=== PATIENT | female | born 1945 | race Two or more races ===

== ENCOUNTER 2017-09-30 08:01 | Emergency (ER) | payer OTHER ==
[~2017-09-30] VITALS: Ht 160 cm; Wt 56.7 kg
[~2017-09-30 08:01] MED LIST: CELEBREX100 MG PO; FOSAMAX70 MG; GLUCOPHAGE XR500 MG; KEPPRA500 MG; KETO10TA2 PO; TOPAMAX25 M1; ZOCOR20 MG
== END 2017-09-30 15:25 | disposition home or self-care (01) ==
LOC: ER 08:01 → CPU-OBS 08:13 → ER 08:13
DX: R07.89 Other chest pain (principal)

== ENCOUNTER 2018-02-07 14:33 | Outpatient (CLI) | payer OTHER | END 2018-02-07 14:38 | disposition home or self-care (01) | LOC: MAMO-SONO 14:33 | DX: Z12.31 Encounter for screening mammogram for malignant neoplasm of breast (principal); Z87.898 Personal history of other specified conditions; N60.21 Fibroadenosis of right breast; N60.22 Fibroadenosis of left breast ==

== ENCOUNTER 2018-05-23 08:51 | Outpatient (CLI) | payer OTHER | END 2018-05-23 08:54 | disposition home or self-care (01) | LOC: SONOGRAMA 08:51 | DX: R10.9 Unspecified abdominal pain (principal) ==

== ENCOUNTER 2019-06-18 09:41 | Outpatient (CLI) | payer OTHER | END 2019-06-18 09:48 | disposition home or self-care (01) | LOC: MAMO-SONO 09:41 | DX: Z12.31 Encounter for screening mammogram for malignant neoplasm of breast (principal); Z87.898 Personal history of other specified conditions; R22.2 Localized swelling, mass and lump, trunk ==

== ENCOUNTER 2020-02-11 09:21 | Outpatient (CLI) | payer OTHER | END 2020-02-11 09:29 | disposition home or self-care (01) | LOC: MRI 09:21 | PROVIDERS: ATTEND Specialist | DX: M50.20 Other cervical disc displacement, unspecified cervical region (principal) | CPT/HCPCS: 72141 ==

== ENCOUNTER 2020-02-25 10:39 | Outpatient (CLI) | payer OTHER | END 2020-02-25 10:45 | disposition home or self-care (01) | LOC: TOM 10:39 | PROVIDERS: ATTEND Specialist | DX: M25.511 Pain in right shoulder (principal); M75.101 Unspecified rotator cuff tear or rupture of right shoulder, not specified as traumatic ==

== ENCOUNTER 2020-06-29 12:02 | Outpatient (CLI) | payer OTHER | END 2020-06-29 12:15 | disposition home or self-care (01) | LOC: NUCLEAR 12:02 | PROVIDERS: ATTEND Family Medicine | DX: M81.0 Age-related osteoporosis without current pathological fracture (principal) ==

== ENCOUNTER → 2020-12-02 10:06 | Outpatient (CLI) | payer OTHER | END | disposition home or self-care (01) | LOC: MRI 10:06 | PROVIDERS: ATTEND Orthopaedic Surgery Adult Reconstructive Orthopaedic Surgery | DX: M25.511 Pain in right shoulder (principal); M75.41 Impingement syndrome of right shoulder; M75.121 Complete rotator cuff tear or rupture of right shoulder, not specified as traumatic | CPT/HCPCS: 73221 ==

== ENCOUNTER 2022-08-26 08:19 | Outpatient (CLI) | payer OTHER | END 2022-08-26 08:32 | disposition home or self-care (01) | LOC: MAMO-SONO 08:19 | PROVIDERS: ATTEND Family Medicine | DX: Z12.31 Encounter for screening mammogram for malignant neoplasm of breast (principal) ==

== ENCOUNTER 2023-09-07 09:29 | Outpatient (CLI) | payer OTHER | END 2023-09-07 09:36 | disposition home or self-care (01) | LOC: SONOGRAMA 09:29 | DX: M75.112 Incomplete rotator cuff tear or rupture of left shoulder, not specified as traumatic (principal) ==

== ENCOUNTER 2024-04-11 05:25 | Day surgery (SDC) | payer OTHER ==
[2024-03-28 08:55] LABS: HEMATOCRIT 43.7 % (36.0-45.00); MEAN CELL VOLUME 88.9 fL (80.00-100.00); MEAN CORPUSCULAR HEMOGLOBIN 30.5 pg (27.00-32.0); MEAN CORPUSCULAR HGB CONC 34.3 g/dl (32.0-36.0); PLATELET COUNT 175 K/uL (150-450); RED BLOOD COUNT 4.91 M/uL (4.00-6.00); RED CELL DISTRIBUTION WIDTH 14.5 % (11.5-14.5)
[2024-03-28 09:18] LABS: PARTIAL THROMBOPLASTIN TIME 25.6 SECONDS (22.0-34.0); PROTHROMBIN TIME 10.9 SECONDS (9.0-11.5)
[2024-03-28 09:23] LABS: ALBUMIN 4.4 gm/dL (3.4-5.0); BILIRUBIN TOTAL 1.91 mg/dL (0.3-1.2); CALCIUM 10.4 mg/dL (8.5-10.1); CREATININE SERUM 0.94 mg/dL (0.55-1.02); GFR 57.59; POTASSIUM 4.46 mEq/L (3.5-5.1); TOTAL PROTEIN 7.4 gm/dL (6.4-8.2)
[2024-03-28 09:41] LABS: PH,URINE 5.5 (5.0-8.0); URINE APPEARANCE Clear; URINE BILIRRUBIN Negative (NEGATIVE); URINE BLOOD Small; URINE COLOR Yellow; URINE GLUCOSE Negative (NEGATIVE); URINE KETONE 15 (NEGATIVE); URINE LEUKOCYTE Trace; URINE NITRATE Negative; URINE PROTEIN Negative (NEGATIVE); URINE UROBILINOGEN 0.2 E.U./dl
[2024-03-28 09:45] LABS: URINE BACTERIA 46.5 uL (0.0-1933); URINE EPITHELIAL CELLS 6.1 uL (0.0-38.8); URINE RBC 20.7 uL (0.0-20.8); URINE WBC 6.3 uL (0.0-23.2)
[~2024-04-11 05:25] MED LIST changes: +LOSARTAN POTASS50 MG
[2024-04-11] MEDS ORDERED: LIDOCAINE HCL 1%/EPINEPHRINE 20ML VIAL IJ ONE (08:15)
[2024-04-11] MEDS ORDERED: KETOROLAC TROMETHAMINE 30 MG VIAL IV ONE (08:15)
[2024-04-11] MEDS ORDERED: CEFAZOLIN SODIUM 2,000 MG in 0.9 % SODIUM CHLORIDE 100 ML IV ONE (08:15)
[2024-04-11] MEDS ORDERED: BUPIVACAINE HCL 30 ML VIAL IJ ONE (08:15)
[2024-04-11] MEDS ORDERED: KETOROLAC TROMETHAMINE 30 MG VIAL IJ ONE (08:15)
[2024-04-11] MEDS ORDERED: SUGAMMADEX SODIUM 200 MG/2 ML VIAL IV ONE (08:30)
[2024-04-11] MEDS ORDERED: MORPHINE SULFATE 4 MG/ML VIAL IV ONE ×2 (09:25→09:55)
== END 2024-04-11 12:00 | disposition home or self-care (01) ==
LOC: CIR.AMB 05:25
PROVIDERS: ATTEND Orthopaedic Surgery
DX: M75.122 Complete rotator cuff tear or rupture of left shoulder, not specified as traumatic (principal); M24.112 Other articular cartilage disorders, left shoulder; M75.22 Bicipital tendinitis, left shoulder